=== PATIENT | female | born 1980 | race African-American/Black ===

== ENCOUNTER 2021-01-03 09:56 | Inpatient (IN) | payer OTHER ==
[2021-01-03] VITALS (34 sets, daily range): BP systolic 88–142; BP diastolic 56–97
[~2021-01-03] VITALS: Ht 167.6 cm; Wt 72.6 kg
[~2021-01-03 09:56] MED LIST: ATROPINE SULFATE 1MG/10ML SYR ONE; EPINEPHRINE 0.1MG/ML (1:10,000) 10ML SYR ONE; ETOMIDATE 2MG/ML 10ML VIAL IV ONE; SODIUM BICARBONATE 8.4% 1 MEQ/ML 50ML SYR IV ONE; SUCCINYLCHOLINE CHLORIDE 200MG/10ML IV ONE
[2021-01-03] MEDS ORDERED: MORPHINE SULFATE 4 MG/ML CPJ (NOT FOR IM USE) IV ONE (10:15)
[2021-01-03] MEDS ORDERED: SODIUM CHLORIDE 0.9% 1000ML BAG (SEPSIS BOLUS) IV ONE (10:15)
[2021-01-03 10:43] LABS: BASOPHILS % 0.7 % (0.0-2.0); EOSINOPHILS % 1.4 % (0.0-5.0); HEMATOCRIT. 22.1 % (36.0-48.0); LYMPHOCYTES % 41.6 % (20.0-50.0); MEAN CORPUSCULAR HEMOGLOBIN 19.2 pg (28.0-32.0); MEAN CORPUSCULAR VOLUME 77.3 fL (81.0-99.0); MEAN PLATELET VOLUME 7.6 fl (7.4-10.4); MONOCYTES % 9.5 % (2.0-8.0); NEUTROPHILS % 46.8 % (40.0-76.0); PLATELET 465 x1000/uL (130-400); RED BLOOD CELL COUNT 2.86 mill/uL (4.2-5.4); RED CELL DISTRIBUTION WIDTH 18.6 % (11.6-14.6)
[2021-01-03 10:45] LABS: CHLORIDE 106 mEq/L (98-107)
[2021-01-03] MEDS ORDERED: SUCCINYLCHOLINE CHLORIDE 200MG/10ML IV ONE (10:45)
[2021-01-03] MEDS ORDERED: PROPOFOL 10MG/ML 100ML 100 ML IV ONE (10:45)
[2021-01-03 10:49] LABS: ETHANOL BLOOD < 10 mg/dL; HEMOGLOBIN. 5.5 g/dL (12.0-16.0); PROTHROMBIN TIME 11.1 sec (9.6-11.0)
[2021-01-03 10:53] LABS: CREATINE KINASE 153 IU/L (26-192)
[2021-01-03 11:11] LABS: HCG SCREEN NEGATIVE
[2021-01-03] MEDS ORDERED: MIDAZOLAM HCL 100 MG in DEXT 5% WATER 80 ML IV ONE (11:30)
[2021-01-03] MEDS ORDERED: FENTANYL CITRATE/PF 500 MCG in SODIUM CHLORIDE 0.9% 40 ML IV PRN (11:30)
[2021-01-03] MEDS ORDERED: FENTANYL CITRATE/PF 2,500 MCG in SODIUM CHLORIDE 0.9% 200 ML IV PRN (11:39)
[2021-01-03] MEDS ORDERED: MIDAZOLAM 100MG/100ML PMX 100 ML IV NR (11:45)
[2021-01-03] MEDS ORDERED: MIDAZOLAM 100MG/100ML PMX 80 ML IV NR (11:45)
[2021-01-03 11:47] LABS: CLARITY URINE CLEAR (CLEAR); COLOR URINE YELLOW (YELLOW); KETONES URINE NEGATIVE (NEGATIVE); LEUKOCYTE ESTERASE URINE NEGATIVE (NEGATIVE); NITRITE URINE NEGATIVE (NEGATIVE); OCCULT BLOOD URINE NEGATIVE (NEGATIVE); PH URINE 8.5 (4.5-8.0); PROTEIN URINE 1+ (NEGATIVE); SPECIFIC GRAVITY URINE 1.014 (1.005-1.030); UROBILINOGEN URINE 0.2 E.U./dL (0.2-1.0)
[2021-01-03 12:14] LABS: BG BASE EXCESS -11.5 mmol/L (-2.0-2.0); BG CARBOXYHEMOGLOBIN 1.3 % (0.5-1.5); BG DEOXYHEMOGLOBIN 0.3 % (0.0-5.0); BG FRACTION INSPIRED OXYGEN 100; BG HCO3 ACT 17.5 mmol/L (22.0-26.0); BG METHEMOGLOBIN 0.3 % (0.0-1.5); BG OXYGEN SATURATION 99.7 % (92.0-98.5); BG OXYHEMOGLOBIN 98.1 % (94.0-97.0); BG PCO2 61.1 mmHg (35.0-45.0); BG PH 7.076 (7.350-7.450); BG PO2 495.2 mmHg (75.0-100.0); BG SAMPLE SITE RIGHT BRACHIAL; BG TOTAL HEMOGLOBIN 6.1 g/dL (12.0-18.0); BG TOTAL RESPIRATORY RATE 34 b/min; BG VENT MODE VENT - AC
[2021-01-03 12:29] LABS: *BARBITURATES SCREEN URINE NEGATIVE (NEGATIVE)
[2021-01-03 12:30] LABS: CANNABINOID URINE SCREEN NEGATIVE (NEGATIVE); PHENCYCLIDINE URINE SCREEN NEGATIVE (NEGATIVE)
[2021-01-03 12:32] LABS: *AMPHETAMINES SCREEN URINE NEGATIVE (NEGATIVE); *BENZODIAZEPINES SCREEN URINE NEGATIVE (NEGATIVE)
[2021-01-03 12:34] LABS: METHADONE URINE SCREEN NEGATIVE (NEGATIVE)
[2021-01-03 12:37] LABS: *COCAINE SCREEN URINE NEGATIVE (NEGATIVE); OPIATES URINE SCREEN NEGATIVE (NEGATIVE)
[2021-01-03] MEDS ORDERED: IOHEXOL-350 100 ML BOTTLE ONE (12:44)
[2021-01-03] MEDS ORDERED: SODIUM BICARBONATE 8.4% 1 MEQ/ML 50ML SYR IV NR (12:45)
[2021-01-03 14:08] LABS: CHLORIDE 109 mEq/L (98-107); HEMATOCRIT. 24.1 % (36.0-48.0); HEMOGLOBIN. 7.1 g/dL (12.0-16.0); MEAN CORPUSCULAR HEMOGLOBIN 22.5 pg (28.0-32.0); MEAN CORPUSCULAR VOLUME 76.1 fL (81.0-99.0); MEAN PLATELET VOLUME 6.6 fl (7.4-10.4); PLATELET 324 x1000/uL (130-400); RED BLOOD CELL COUNT 3.17 mill/uL (4.2-5.4); RED CELL DISTRIBUTION WIDTH 22.3 % (11.6-14.6)
[2021-01-03 14:12] LABS: INR 1.2; PROTHROMBIN TIME 12.4 sec (9.6-11.0)
[2021-01-03 14:43] LABS: BG BASE EXCESS -2.6 mmol/L (-2.0-2.0); BG CARBOXYHEMOGLOBIN 0.4 % (0.5-1.5); BG DEOXYHEMOGLOBIN 6.3 % (0.0-5.0); BG FRACTION INSPIRED OXYGEN 45; BG METHEMOGLOBIN 0.6 % (0.0-1.5); BG OXYGEN SATURATION 93.6 % (92.0-98.5); BG OXYHEMOGLOBIN 92.7 % (94.0-97.0); BG PCO2 43.9 mmHg (35.0-45.0); BG PH 7.338 (7.350-7.450); BG PO2 81.7 mmHg (75.0-100.0); BG SAMPLE SITE RIGHT BRACHIAL; BG TOTAL HEMOGLOBIN 7.2 g/dL (12.0-18.0); BG TOTAL RESPIRATORY RATE 25 b/min; BG VENT MODE VENT - AC
[2021-01-03 15:06] LABS: PLATELET ESTIMATE NORMAL
[2021-01-03] MEDS ORDERED: NOREPINEPHRINE 8MG/250ML PMX 250 ML IV NR (15:30)
[2021-01-03 16:33] LABS: TOTAL IRON BINDING CAPACITY 394 ug/dL (250-450)
[2021-01-03 16:57] LABS: FOLIC ACID (FOLATE) SERUM >20 ng/mL ng/mL (>5.38)
[2021-01-03 17:09] LABS: VITAMIN B12 SERUM 1336 pg/mL (211-911)
[2021-01-03 17:13] LABS: FERRITIN 7 ng/mL (10-291)
[2021-01-03] MEDS ORDERED: LEVOFLOXACIN 750MG PREMIX 150 ML IV SCH (17:30)
[2021-01-03] MEDS ORDERED: MIDAZOLAM 100MG/100ML PMX 100 ML IV PRN (17:45)
[2021-01-03] MEDS ORDERED: NOREPINEPHRINE 8MG/250ML PMX 250 ML IV PRN (17:45)
[2021-01-03 17:56] LABS: HEPATITIS B SURFACE ANTIGEN NEGATIVE
[2021-01-03] MEDS ORDERED: VANCOMYCIN 1500MG in DEXTROSE 5% WATER 250ML IV NR (18:00)
[2021-01-03] MEDS: PANTOPRAZOLE SODIUM 40 MG/VIAL IV SCH (18:04)
[2021-01-03] MEDS: DEXT 5%/0.45% NACL 1000ML 1,000 ML IV SCH (18:04)
[2021-01-03] MEDS: LACTULOSE 20G/30ML UDC PO SCH ×2 (18:04→22:03)
[2021-01-03] MEDS: MIDAZOLAM HCL 100 MG in SODIUM CHLORIDE 0.9% 100 ML IV PRN (18:28)
[2021-01-03] MEDS ORDERED: HEPARIN 5000 UNITS/ML VIAL IV PRN ×3 (18:30→20:14)
[2021-01-03] MEDS ORDERED: HEPARIN 25,000 UNITS PREMIX 250 ML IV PRN (18:30)
[2021-01-03] MEDS ORDERED: HEPARIN 5000 UNITS/ML VIAL IV SCH (18:30)
[2021-01-03] MEDS: FENTANYL CITRATE/PF 2,500 MCG in SODIUM CHLORIDE 0.9% 200 ML IV PRN (19:01)
[2021-01-03 20:16] LABS: BASOPHILS % 0.2 % (0.0-2.0); EOSINOPHILS % 0.2 % (0.0-5.0); HEMATOCRIT. 25.1 % (36.0-48.0); HEMOGLOBIN. 7.7 g/dL (12.0-16.0); LYMPHOCYTES % 15.4 % (20.0-50.0); MEAN CORPUSCULAR HEMOGLOBIN 22.5 pg (28.0-32.0); MEAN CORPUSCULAR VOLUME 73.5 fL (81.0-99.0); MEAN PLATELET VOLUME 6.8 fl (7.4-10.4); MONOCYTES % 6.9 % (2.0-8.0); NEUTROPHILS % 77.3 % (40.0-76.0); PLATELET 388 x1000/uL (130-400); RED BLOOD CELL COUNT 3.41 mill/uL (4.2-5.4); RED CELL DISTRIBUTION WIDTH 22.9 % (11.6-14.6)
[2021-01-03 20:26] LABS: INR 1.1; PARTIAL THROMBOPLASTIN TIME 26.7 sec (23.4-31.0); PROTHROMBIN TIME 11.8 sec (9.6-11.0)
[2021-01-03 20:40] LABS: PLATELET ESTIMATE NORMAL
[2021-01-03 21:50] LABS: BASOPHILS % 0.4 % (0.0-2.0); EOSINOPHILS % 0.3 % (0.0-5.0); HEMATOCRIT. 25.2 % (36.0-48.0); HEMOGLOBIN. 7.6 g/dL (12.0-16.0); LYMPHOCYTES % 18.1 % (20.0-50.0); MEAN CORPUSCULAR HEMOGLOBIN 22.5 pg (28.0-32.0); MEAN CORPUSCULAR VOLUME 74.3 fL (81.0-99.0); MEAN PLATELET VOLUME 6.7 fl (7.4-10.4); MONOCYTES % 8.9 % (2.0-8.0); NEUTROPHILS % 72.3 % (40.0-76.0); PLATELET 381 x1000/uL (130-400); RED BLOOD CELL COUNT 3.39 mill/uL (4.2-5.4)
[2021-01-03] MEDS: LEVOFLOXACIN 750MG PREMIX 150 ML IV SCH (22:04)
[2021-01-03] MEDS ORDERED: ACETAMINOPHEN 650MG SUPP PR PRN (23:00)
[2021-01-04] VITALS (92 sets, daily range): BP systolic 64–141; BP diastolic 25–87
[2021-01-04] MEDS: NOREPINEPHRINE 8 MG in DEXTROSE 5% WATER 250 ML IV PRN ×2 (01:41→09:41)
[2021-01-04] MEDS: MIDAZOLAM HCL 100 MG in SODIUM CHLORIDE 0.9% 100 ML IV PRN ×2 (05:39→15:50)
[2021-01-04] MEDS: LACTULOSE 20G/30ML UDC PO SCH ×3 (05:39→21:43)
[2021-01-04 05:51] LABS: CHLORIDE 110 mEq/L (98-107)
[2021-01-04 05:52] LABS: BASOPHILS % 0.5 % (0.0-2.0); EOSINOPHILS % 0.2 % (0.0-5.0); HEMATOCRIT. 37.6 % (36.0-48.0); HEMOGLOBIN. 11.4 g/dL (12.0-16.0); LYMPHOCYTES % 11.5 % (20.0-50.0); MEAN CORPUSCULAR HEMOGLOBIN 23.8 pg (28.0-32.0); MEAN CORPUSCULAR VOLUME 78.4 fL (81.0-99.0); MEAN PLATELET VOLUME 7.3 fl (7.4-10.4); MONOCYTES % 6.5 % (2.0-8.0); NEUTROPHILS % 81.3 % (40.0-76.0); PLATELET 380 x1000/uL (130-400); RED CELL DISTRIBUTION WIDTH 21.3 % (11.6-14.6)
[2021-01-04 05:57] LABS: PHOSPHORUS 4.7 mg/dL (2.5-4.9)
[2021-01-04 05:59] LABS: LDL CHOLESTEROL 86 mg/dL (5-100)
[2021-01-04 06:00] LABS: CREATINE KINASE MB FRACTION 16.1 ng/mL (0.5-3.6); HDL CHOLESTEROL 72 mg/dL (40-59); T4 FREE 1.22 ng/dL (0.76-1.46)
[2021-01-04] MEDS: FENTANYL CITRATE/PF 2,500 MCG in SODIUM CHLORIDE 0.9% 200 ML IV PRN ×2 (08:09→21:44)
[2021-01-04] MEDS: PANTOPRAZOLE SODIUM 40 MG/VIAL IV SCH (08:10)
[2021-01-04] MEDS: VANCOMYCIN 750 MG PREMIX 150 ML IV SCH ×2 (08:10→17:11)
[2021-01-04] MEDS: IPRATROPIUM/ALBUTEROL 0.5-3(2.5)MG/3ML NEB HHN SCH ×3 (08:44→21:07)
[2021-01-04] MEDS ORDERED: LIDOCAINE HCL 1% 10 MG/ML 10ML VIAL ONE (09:48)
[2021-01-04] MEDS ORDERED: FENTANYL CITRATE/PF 50MCG/ML 5ML VIAL ONE (09:48)
[2021-01-04] MEDS ORDERED: MIDAZOLAM HCL 5 MG/5 ML VIAL ONE (09:48)
[2021-01-04] MEDS ORDERED: IOHEXOL-300 100 ML BOTTLE ONE (09:49)
[2021-01-04] MEDS ORDERED: IODIXANOL 320MG/ML 100 ML BOTTLE IV ONE ×2 (09:49→11:49)
[2021-01-04 10:12] LABS: BG BASE EXCESS -3.7 mmol/L (-2.0-2.0); BG CARBOXYHEMOGLOBIN 0.3 % (0.5-1.5); BG DEOXYHEMOGLOBIN 9.8 % (0.0-5.0); BG FRACTION INSPIRED OXYGEN 45; BG HCO3 ACT 22.7 mmol/L (22.0-26.0); BG METHEMOGLOBIN 0.3 % (0.0-1.5); BG OXYGEN SATURATION 90.1 % (92.0-98.5); BG OXYHEMOGLOBIN 89.6 % (94.0-97.0); BG PCO2 46.4 mmHg (35.0-45.0); BG PH 7.307 (7.350-7.450); BG PO2 68.9 mmHg (75.0-100.0); BG SAMPLE SITE RIGHT BRACHIAL; BG TOTAL HEMOGLOBIN 11.7 g/dL (12.0-18.0); BG VENT MODE VENT - AC
[2021-01-04] MEDS ORDERED: HEPARIN 1000 UNITS/ML 10ML ONE (11:57)
[2021-01-04] MEDS: DEXT 5%/0.45% NACL 1000ML 1,000 ML IV SCH (13:10)
[2021-01-04] MEDS ORDERED: ATROPINE SULFATE 1MG/10ML SYR IV PRN (13:45)
[2021-01-04 15:50] LABS: BG BASE EXCESS 0.4 mmol/L (-2.0-2.0); BG CARBOXYHEMOGLOBIN 0.3 % (0.5-1.5); BG DEOXYHEMOGLOBIN 13.5 % (0.0-5.0); BG FRACTION INSPIRED OXYGEN 50; BG HCO3 ACT 25.6 mmol/L (22.0-26.0); BG METHEMOGLOBIN 0.3 % (0.0-1.5); BG OXYGEN SATURATION 86.4 % (92.0-98.5); BG OXYHEMOGLOBIN 85.9 % (94.0-97.0); BG PCO2 43.8 mmHg (35.0-45.0); BG PH 7.384 (7.350-7.450); BG PO2 56.3 mmHg (75.0-100.0); BG SAMPLE SITE RIGHT BRACHIAL; BG TOTAL HEMOGLOBIN 10.1 g/dL (12.0-18.0); BG VENT MODE VENT - AC
[2021-01-04] MEDS ORDERED: ACETAMINOPHEN 650MG/20.3ML UDC PO PRN (16:00)
[2021-01-04] MEDS: LEVOFLOXACIN 750MG PREMIX 150 ML IV SCH (17:10)
[2021-01-04] MEDS: ENOXAPARIN 80MG/0.8ML SYR SUBCUT SCH (17:11)
[2021-01-04] MEDS: ACETAMINOPHEN 650MG/20.3ML UDC NG PRN (21:46)
[2021-01-05] VITALS (89 sets, daily range): BP systolic 86–143; BP diastolic 46–72
[2021-01-05] MEDS: IPRATROPIUM/ALBUTEROL 0.5-3(2.5)MG/3ML NEB HHN SCH ×2 (00:59→20:11)
[2021-01-05] MEDS: MIDAZOLAM HCL 100 MG in SODIUM CHLORIDE 0.9% 100 ML IV PRN ×2 (03:49→14:14)
[2021-01-05 05:11] LABS: BASOPHILS % 0.3 % (0.0-2.0); EOSINOPHILS % 0.3 % (0.0-5.0); HEMATOCRIT. 26.5 % (36.0-48.0); HEMOGLOBIN. 8.2 g/dL (12.0-16.0); LYMPHOCYTES % 10.7 % (20.0-50.0); MEAN CORPUSCULAR HEMOGLOBIN 24.2 pg (28.0-32.0); MEAN CORPUSCULAR VOLUME 78.2 fL (81.0-99.0); MEAN PLATELET VOLUME 7.4 fl (7.4-10.4); MONOCYTES % 7.9 % (2.0-8.0); NEUTROPHILS % 80.8 % (40.0-76.0); PLATELET 248 x1000/uL (130-400); RED BLOOD CELL COUNT 3.39 mill/uL (4.2-5.4); RED CELL DISTRIBUTION WIDTH 21.7 % (11.6-14.6)
[2021-01-05 05:15] LABS: CHLORIDE 109 mEq/L (98-107)
[2021-01-05 05:19] LABS: PHOSPHORUS 2.2 mg/dL (2.5-4.9)
[2021-01-05] MEDS: LACTULOSE 20G/30ML UDC PO SCH (05:31)
[2021-01-05] MEDS: VANCOMYCIN 750 MG PREMIX 150 ML IV SCH ×3 (05:31→21:07)
[2021-01-05] MEDS: ENOXAPARIN 80MG/0.8ML SYR SUBCUT SCH ×2 (05:32→17:40)
[2021-01-05] MEDS: PANTOPRAZOLE SODIUM 40 MG/VIAL IV SCH (09:46)
[2021-01-05] MEDS: MIDODRINE HCL 5MG TABLET PO SCH ×3 (10:48→17:04)
[2021-01-05] MEDS: FENTANYL CITRATE/PF 2,500 MCG in SODIUM CHLORIDE 0.9% 200 ML IV PRN ×2 (10:49→23:45)
[2021-01-05 11:20] LABS: BG BASE EXCESS 2.3 mmol/L (-2.0-2.0); BG CARBOXYHEMOGLOBIN 0.3 % (0.5-1.5); BG DEOXYHEMOGLOBIN 11.3 % (0.0-5.0); BG FRACTION INSPIRED OXYGEN 50; BG HCO3 ACT 26.9 mmol/L (22.0-26.0); BG METHEMOGLOBIN 0.5 % (0.0-1.5); BG OXYGEN SATURATION 88.6 % (92.0-98.5); BG OXYHEMOGLOBIN 87.9 % (94.0-97.0); BG PCO2 42.3 mmHg (35.0-45.0); BG PH 7.422 (7.350-7.450); BG PO2 56.2 mmHg (75.0-100.0); BG SAMPLE SITE RIGHT BRACHIAL; BG TOTAL HEMOGLOBIN 8.3 g/dL (12.0-18.0); BG VENT MODE VENT - AC
[2021-01-05] MEDS: IRON SUCROSE COMPLEX 100 MG/5 ML ML IV SCH (12:55)
[2021-01-05] MEDS: FERROUS SULFATE 325MG TABLET PO SCH ×2 (12:55→17:04)
[2021-01-05] MEDS: LEVOFLOXACIN 750MG PREMIX 150 ML IV SCH (17:03)
[2021-01-05] MEDS: ACETAMINOPHEN 650MG/20.3ML UDC NG PRN (17:04)
[2021-01-06] VITALS (97 sets, daily range): BP systolic 87–126; BP diastolic 45–83
[2021-01-06] MEDS: IPRATROPIUM/ALBUTEROL 0.5-3(2.5)MG/3ML NEB HHN SCH ×3 (02:06→16:26)
[2021-01-06 03:27] LABS: CHLORIDE 107 mEq/L (98-107)
[2021-01-06 03:31] LABS: HEMATOCRIT. 24.2 % (36.0-48.0); HEMOGLOBIN. 7.8 g/dL (12.0-16.0); MEAN CORPUSCULAR HEMOGLOBIN 24.6 pg (28.0-32.0); MEAN CORPUSCULAR VOLUME 76.4 fL (81.0-99.0); MEAN PLATELET VOLUME 7.7 fl (7.4-10.4); PLATELET 211 x1000/uL (130-400); RED BLOOD CELL COUNT 3.17 mill/uL (4.2-5.4); RED CELL DISTRIBUTION WIDTH 22.5 % (11.6-14.6)
[2021-01-06] MEDS: ENOXAPARIN 80MG/0.8ML SYR SUBCUT SCH ×2 (05:38→17:37)
[2021-01-06] MEDS: VANCOMYCIN 750 MG PREMIX 150 ML IV SCH ×3 (05:38→22:37)
[2021-01-06] MEDS: FERROUS SULFATE 325MG TABLET PO SCH ×3 (05:39→17:36)
[2021-01-06] MEDS: LACTULOSE 20G/30ML UDC PO SCH (08:01)
[2021-01-06] MEDS: MIDODRINE HCL 5MG TABLET PO SCH ×3 (08:01→17:36)
[2021-01-06] MEDS: PANTOPRAZOLE SODIUM 40 MG/VIAL IV SCH (08:01)
[2021-01-06] MEDS: IRON SUCROSE COMPLEX 100 MG/5 ML ML IV SCH (08:01)
[2021-01-06] MEDS ORDERED: POTASSIUM-SODIUM PHOSPHATE POWDER PACKET PO SCH (08:30)
[2021-01-06 08:41] LABS: BG CARBOXYHEMOGLOBIN 0.5 % (0.5-1.5); BG DEOXYHEMOGLOBIN 6.9 % (0.0-5.0); BG FRACTION INSPIRED OXYGEN 50; BG HCO3 ACT 24.9 mmol/L (22.0-26.0); BG METHEMOGLOBIN 0.3 % (0.0-1.5); BG OXYHEMOGLOBIN 92.3 % (94.0-97.0); BG PCO2 36.2 mmHg (35.0-45.0); BG PH 7.456 (7.350-7.450); BG SAMPLE SITE LEFT RADIAL; BG TOTAL HEMOGLOBIN 7.5 g/dL (12.0-18.0); BG TOTAL RESPIRATORY RATE 24 b/min; BG VENT MODE VENT - AC
[2021-01-06] MEDS ORDERED: FUROSEMIDE 40MG/4ML VIAL IVP SCH (08:45)
[2021-01-06] MEDS ORDERED: DEXT 5%/0.45% NACL 1000ML 1,000 ML IV SCH (10:00)
[2021-01-06 11:05] LABS: PLATELET ESTIMATE NORMAL
[2021-01-06] MEDS: FENTANYL CITRATE/PF 2,500 MCG in SODIUM CHLORIDE 0.9% 200 ML IV PRN (15:02)
[2021-01-06] MEDS: LEVOFLOXACIN 750MG PREMIX 150 ML IV SCH (17:36)
[2021-01-06 19:42] LABS: HEMATOCRIT. 25.5 % (36.0-48.0); HEMOGLOBIN. 8.4 g/dL (12.0-16.0); MEAN CORPUSCULAR HEMOGLOBIN 25.6 pg (28.0-32.0); MEAN CORPUSCULAR VOLUME 77.3 fL (81.0-99.0); MEAN PLATELET VOLUME 7.7 fl (7.4-10.4); PLATELET 228 x1000/uL (130-400)
[2021-01-06 20:28] LABS: PLATELET ESTIMATE NORMAL
[2021-01-07] VITALS (86 sets, daily range): BP systolic 97–132; BP diastolic 23–82
[2021-01-07 00:53] LABS: BASOPHILS % 0.2 % (0.0-2.0); EOSINOPHILS % 0.7 % (0.0-5.0); HEMATOCRIT. 26.2 % (36.0-48.0); HEMOGLOBIN. 8.5 g/dL (12.0-16.0); LYMPHOCYTES % 11.1 % (20.0-50.0); MEAN CORPUSCULAR HEMOGLOBIN 25.3 pg (28.0-32.0); MEAN CORPUSCULAR VOLUME 78.1 fL (81.0-99.0); MEAN PLATELET VOLUME 7.2 fl (7.4-10.4); MONOCYTES % 9.9 % (2.0-8.0); NEUTROPHILS % 78.1 % (40.0-76.0); PLATELET 226 x1000/uL (130-400); RED BLOOD CELL COUNT 3.35 mill/uL (4.2-5.4); RED CELL DISTRIBUTION WIDTH 22.7 % (11.6-14.6)
[2021-01-07] MEDS: FENTANYL CITRATE/PF 2,500 MCG in SODIUM CHLORIDE 0.9% 200 ML IV PRN (03:44)
[2021-01-07 04:12] LABS: HIV SCREEN 4G Non Reactive (Non Reactive)
[2021-01-07] MEDS: VANCOMYCIN 750 MG PREMIX 150 ML IV SCH ×2 (06:16→14:17)
[2021-01-07] MEDS: FERROUS SULFATE 325MG TABLET PO SCH ×3 (06:16→17:08)
[2021-01-07] MEDS: ENOXAPARIN 80MG/0.8ML SYR SUBCUT SCH ×2 (06:17→17:08)
[2021-01-07 06:24] LABS: CHLORIDE 108 mEq/L (98-107)
[2021-01-07 06:27] LABS: BASOPHILS % 0.6 % (0.0-2.0); EOSINOPHILS % 0.5 % (0.0-5.0); HEMATOCRIT. 22.7 % (36.0-48.0); HEMOGLOBIN. 7.3 g/dL (12.0-16.0); LYMPHOCYTES % 9.2 % (20.0-50.0); MEAN CORPUSCULAR HEMOGLOBIN 25.6 pg (28.0-32.0); MEAN CORPUSCULAR VOLUME 79.7 fL (81.0-99.0); MEAN PLATELET VOLUME 8.1 fl (7.4-10.4); MONOCYTES % 10.2 % (2.0-8.0); NEUTROPHILS % 79.5 % (40.0-76.0); PLATELET 237 x1000/uL (130-400); RED BLOOD CELL COUNT 2.85 mill/uL (4.2-5.4); RED CELL DISTRIBUTION WIDTH 22.4 % (11.6-14.6)
[2021-01-07 08:37] LABS: BG BASE EXCESS 4.9 mmol/L (-2.0-2.0); BG CARBOXYHEMOGLOBIN 0.4 % (0.5-1.5); BG DEOXYHEMOGLOBIN 5.2 % (0.0-5.0); BG METHEMOGLOBIN 0.3 % (0.0-1.5); BG OXYGEN SATURATION 94.8 % (92.0-98.5); BG OXYHEMOGLOBIN 94.1 % (94.0-97.0); BG PCO2 41.1 mmHg (35.0-45.0); BG PH 7.467 (7.350-7.450); BG PO2 71.1 mmHg (75.0-100.0); BG SAMPLE SITE RIGHT RADIAL; BG TOTAL HEMOGLOBIN 9.1 g/dL (12.0-18.0)
[2021-01-07 08:41] LABS: BG VENT MODE VENT - A/C
[2021-01-07 08:42] LABS: BG TIDAL VOLUME(mL) 450 mL
[2021-01-07] MEDS: IPRATROPIUM/ALBUTEROL 0.5-3(2.5)MG/3ML NEB HHN SCH ×3 (08:46→21:33)
[2021-01-07] MEDS: IRON SUCROSE COMPLEX 100 MG/5 ML ML IV SCH (08:52)
[2021-01-07] MEDS: MIDODRINE HCL 5MG TABLET PO SCH ×3 (08:52→17:09)
[2021-01-07] MEDS: LACTULOSE 20G/30ML UDC PO SCH (08:52)
[2021-01-07] MEDS: PANTOPRAZOLE SODIUM 40 MG/VIAL IV SCH (08:52)
[2021-01-07] MEDS ORDERED: POTASSIUM CHLORIDE 20MEQ TABLET SR PO NR (09:45)
[2021-01-07 11:14] LABS: BG BASE EXCESS 2.8 mmol/L (-2.0-2.0); BG CARBOXYHEMOGLOBIN 0.3 % (0.5-1.5); BG DEOXYHEMOGLOBIN 6.7 % (0.0-5.0); BG FRACTION INSPIRED OXYGEN 40; BG METHEMOGLOBIN 0.2 % (0.0-1.5); BG OXYGEN SATURATION 93.3 % (92.0-98.5); BG OXYHEMOGLOBIN 92.8 % (94.0-97.0); BG PCO2 39.9 mmHg (35.0-45.0); BG PH 7.448 (7.350-7.450); BG PO2 66.3 mmHg (75.0-100.0); BG SAMPLE SITE RIGHT RADIAL; BG TOTAL HEMOGLOBIN 9.4 g/dL (12.0-18.0); BG TOTAL RESPIRATORY RATE 21 b/min; BG VENT MODE VENT - CPAP
[2021-01-07] MEDS: FUROSEMIDE 40MG/4ML VIAL IVP SCH (11:54)
[2021-01-07] MEDS: POLYETHYLENE GLYCOL 3350 (17GM) 1 DOSE PACK PO SCH (14:17)
[2021-01-07 15:23] LABS: BASOPHILS % 0.3 % (0.0-2.0); EOSINOPHILS % 0.7 % (0.0-5.0); HEMATOCRIT. 33.4 % (36.0-48.0); HEMOGLOBIN. 10.6 g/dL (12.0-16.0); LYMPHOCYTES % 8.5 % (20.0-50.0); MEAN CORPUSCULAR HEMOGLOBIN 24.8 pg (28.0-32.0); MEAN PLATELET VOLUME 7.8 fl (7.4-10.4); MONOCYTES % 12.1 % (2.0-8.0); NEUTROPHILS % 78.4 % (40.0-76.0); PLATELET 294 x1000/uL (130-400); RED BLOOD CELL COUNT 4.28 mill/uL (4.2-5.4); RED CELL DISTRIBUTION WIDTH 22.3 % (11.6-14.6)
[2021-01-07] MEDS ORDERED: FUROSEMIDE 20MG/2ML VIAL IVP SCH (16:00)
[2021-01-07 16:25] LABS: PLATELET ESTIMATE NORMAL
[2021-01-07] MEDS: LEVOFLOXACIN 750MG PREMIX 150 ML IV SCH (17:08)
[2021-01-07] MEDS: DOCUSATE SODIUM 100MG CAPSULE PO SCH (17:08)
[2021-01-08] VITALS (63 sets, daily range): BP systolic 101–149; BP diastolic 50–89
[2021-01-08] MEDS: IPRATROPIUM/ALBUTEROL 0.5-3(2.5)MG/3ML NEB HHN SCH ×3 (01:39→20:11)
[2021-01-08 06:04] LABS: CHLORIDE 105 mEq/L (98-107)
[2021-01-08] MEDS: ENOXAPARIN 80MG/0.8ML SYR SUBCUT SCH ×2 (07:04→17:35)
[2021-01-08] MEDS: FUROSEMIDE 40MG/4ML VIAL IVP SCH (08:02)
[2021-01-08] MEDS: MIDODRINE HCL 5MG TABLET PO SCH ×3 (08:02→17:35)
[2021-01-08] MEDS: POLYETHYLENE GLYCOL 3350 (17GM) 1 DOSE PACK PO SCH (08:02)
[2021-01-08] MEDS: FERROUS SULFATE 325MG TABLET PO SCH ×3 (08:02→17:33)
[2021-01-08] MEDS: PANTOPRAZOLE SODIUM 40 MG/VIAL IV SCH (08:02)
[2021-01-08] MEDS: LACTULOSE 20G/30ML UDC PO SCH (08:02)
[2021-01-08] MEDS: DOCUSATE SODIUM 100MG CAPSULE PO SCH ×2 (08:03→17:34)
[2021-01-08] MEDS ORDERED: POTASSIUM CHLORIDE INJ 40 MEQ in DEXT 5% WATER 250 ML IV ONE (10:15)
[2021-01-08 10:41] LABS: HEMATOCRIT. 32.8 % (36.0-48.0); HEMOGLOBIN. 10.4 g/dL (12.0-16.0); MEAN CORPUSCULAR VOLUME 78.6 fL (81.0-99.0); MEAN PLATELET VOLUME 7.7 fl (7.4-10.4); PLATELET 273 x1000/uL (130-400); RED BLOOD CELL COUNT 4.17 mill/uL (4.2-5.4); RED CELL DISTRIBUTION WIDTH 22.7 % (11.6-14.6)
[2021-01-08] MEDS: KCL 20MEQ/100ML PREMIX 100 ML IV SCH ×2 (11:54→14:08)
[2021-01-08 14:16] LABS: ATYPICAL LYMPHOCYTES 1
[2021-01-08 14:17] LABS: PLATELET ESTIMATE NORMAL
[2021-01-08] MEDS: LEVOFLOXACIN 750MG PREMIX 150 ML IV SCH (17:33)
[2021-01-08] MEDS ORDERED: POLYETHYLENE GLYCOL 3350 (17GM) 1 DOSE PACK PO NR (18:00)
[2021-01-09] VITALS (11 sets, daily range): BP systolic 109–143; BP diastolic 56–84
[2021-01-09] MEDS: IPRATROPIUM/ALBUTEROL 0.5-3(2.5)MG/3ML NEB HHN SCH ×4 (01:00→20:07)
[2021-01-09] MEDS: ENOXAPARIN 80MG/0.8ML SYR SUBCUT SCH ×2 (06:33→17:43)
[2021-01-09 06:55] LABS: HEMATOCRIT. 33.4 % (36.0-48.0); MEAN CORPUSCULAR HEMOGLOBIN 25.8 pg (28.0-32.0); MEAN PLATELET VOLUME 7.2 fl (7.4-10.4); PLATELET 317 x1000/uL (130-400); RED BLOOD CELL COUNT 4.29 mill/uL (4.2-5.4); RED CELL DISTRIBUTION WIDTH 22.8 % (11.6-14.6)
[2021-01-09 07:05] LABS: CHLORIDE 107 mEq/L (98-107)
[2021-01-09] MEDS: POLYETHYLENE GLYCOL 3350 (17GM) 1 DOSE PACK PO SCH (09:00)
[2021-01-09] MEDS: PANTOPRAZOLE SODIUM 40 MG/VIAL IV SCH (09:25)
[2021-01-09] MEDS: MIDODRINE HCL 5MG TABLET PO SCH ×3 (09:26→17:45)
[2021-01-09] MEDS: FUROSEMIDE 40MG/4ML VIAL IVP SCH (09:26)
[2021-01-09] MEDS: FERROUS SULFATE 325MG TABLET PO SCH (09:27)
[2021-01-09] MEDS: DOCUSATE SODIUM 100MG CAPSULE PO SCH ×2 (09:27→17:47)
[2021-01-09] MEDS: LACTULOSE 20G/30ML UDC PO SCH (09:27)
[2021-01-09] MEDS: ASCORBIC ACID 250 MG TABLET PO SCH (09:29)
[2021-01-09] MEDS: SPIRONOLACTONE 25MG TABLET PO SCH (10:29)
[2021-01-09] MEDS ORDERED: POTASSIUM CHLORIDE INJ 40 MEQ in DEXT 5% WATER 250 ML IV ONE (11:15)
[2021-01-09] MEDS: KCL 20MEQ/100ML PREMIX 100 ML IV SCH ×2 (12:55→17:47)
[2021-01-09 17:49] LABS: PLATELET ESTIMATE NORMAL
[2021-01-09] MEDS: GUAIFENESIN 600MG ER TABLET PO SCH (20:44)
[2021-01-10] VITALS (12 sets, daily range): BP systolic 100–135; BP diastolic 51–107
[2021-01-10] MEDS: IPRATROPIUM/ALBUTEROL 0.5-3(2.5)MG/3ML NEB HHN SCH ×4 (02:08→19:48)
[2021-01-10] MEDS: ENOXAPARIN 80MG/0.8ML SYR SUBCUT SCH ×2 (05:43→17:24)
[2021-01-10 06:48] LABS: CHLORIDE 106 mEq/L (98-107)
[2021-01-10 06:49] LABS: HEMATOCRIT. 34.1 % (36.0-48.0); HEMOGLOBIN. 11.2 g/dL (12.0-16.0); MEAN CORPUSCULAR HEMOGLOBIN 25.8 pg (28.0-32.0); MEAN CORPUSCULAR VOLUME 78.5 fL (81.0-99.0); MEAN PLATELET VOLUME 7.1 fl (7.4-10.4); PLATELET 339 x1000/uL (130-400); RED BLOOD CELL COUNT 4.34 mill/uL (4.2-5.4); RED CELL DISTRIBUTION WIDTH 23.6 % (11.6-14.6)
[2021-01-10] MEDS: ASCORBIC ACID 250 MG TABLET PO SCH (08:26)
[2021-01-10] MEDS: GUAIFENESIN 600MG ER TABLET PO SCH ×2 (08:26→20:06)
[2021-01-10] MEDS: FUROSEMIDE 40MG/4ML VIAL IVP SCH (08:26)
[2021-01-10] MEDS: PANTOPRAZOLE SODIUM 40 MG/VIAL IV SCH (08:26)
[2021-01-10] MEDS: DOCUSATE SODIUM 100MG CAPSULE PO SCH ×2 (08:27→16:25)
[2021-01-10] MEDS: MIDODRINE HCL 5MG TABLET PO SCH ×3 (08:27→17:24)
[2021-01-10] MEDS: SPIRONOLACTONE 25MG TABLET PO SCH (08:27)
[2021-01-10] MEDS: LACTULOSE 20G/30ML UDC PO SCH (08:27)
[2021-01-10] MEDS: POLYETHYLENE GLYCOL 3350 (17GM) 1 DOSE PACK PO SCH (08:27)
[2021-01-10] MEDS ORDERED: POTASSIUM CHLORIDE 20MEQ TABLET SR PO NR (08:30)
[2021-01-10] MEDS ORDERED: ONDANSETRON HCL 4MG/2ML INJ IV PRN (09:00)
[2021-01-10] MEDS ORDERED: POTASSIUM CHLORIDE INJ 40 MEQ in DEXT 5% WATER 250 ML IV ONE (09:00)
[2021-01-10] MEDS: KCL 20MEQ/100ML PREMIX 100 ML IV SCH ×2 (10:20→12:30)
[2021-01-10 11:47] LABS: BG CARBOXYHEMOGLOBIN 0.4 % (0.5-1.5); BG FRACTION INSPIRED OXYGEN 21; BG HCO3 ACT 27.7 mmol/L (22.0-26.0); BG METHEMOGLOBIN 0.2 % (0.0-1.5); BG OXYHEMOGLOBIN 91.4 % (94.0-97.0); BG PCO2 38.2 mmHg (35.0-45.0); BG PH 7.478 (7.350-7.450); BG PO2 64.7 mmHg (75.0-100.0); BG TOTAL HEMOGLOBIN 11.9 g/dL (12.0-18.0); BG VENT MODE ROOM AIR
[2021-01-10 15:00] LABS: ATYPICAL LYMPHOCYTES 3; PLATELET ESTIMATE NORMAL
[2021-01-11] VITALS (10 sets, daily range): BP systolic 111–143; BP diastolic 65–82
[2021-01-11] MEDS: IPRATROPIUM/ALBUTEROL 0.5-3(2.5)MG/3ML NEB HHN SCH ×3 (01:55→15:19)
[2021-01-11] MEDS: ENOXAPARIN 80MG/0.8ML SYR SUBCUT SCH (05:47)
[2021-01-11 06:16] LABS: HEMATOCRIT. 36.5 % (36.0-48.0); HEMOGLOBIN. 11.9 g/dL (12.0-16.0); MEAN CORPUSCULAR HEMOGLOBIN 25.8 pg (28.0-32.0); MEAN CORPUSCULAR VOLUME 79.1 fL (81.0-99.0); MEAN PLATELET VOLUME 6.8 fl (7.4-10.4); PLATELET 236 x1000/uL (130-400); RED BLOOD CELL COUNT 4.62 mill/uL (4.2-5.4); RED CELL DISTRIBUTION WIDTH 23.6 % (11.6-14.6)
[2021-01-11 06:26] LABS: CHLORIDE 105 mEq/L (98-107)
[2021-01-11] MEDS: LACTULOSE 20G/30ML UDC PO SCH (08:07)
[2021-01-11] MEDS: PANTOPRAZOLE SODIUM 40 MG/VIAL IV SCH (08:07)
[2021-01-11] MEDS: GUAIFENESIN 600MG ER TABLET PO SCH (08:07)
[2021-01-11] MEDS: MIDODRINE HCL 5MG TABLET PO SCH ×3 (08:09→17:00)
[2021-01-11] MEDS: ASCORBIC ACID 250 MG TABLET PO SCH (08:09)
[2021-01-11] MEDS: SPIRONOLACTONE 25MG TABLET PO SCH (08:10)
[2021-01-11] MEDS: POLYETHYLENE GLYCOL 3350 (17GM) 1 DOSE PACK PO SCH (08:11)
[2021-01-11] MEDS: DOCUSATE SODIUM 100MG CAPSULE PO SCH ×2 (08:11→17:00)
[2021-01-11] MEDS ORDERED: FUROSEMIDE 20MG TABLET PO SCH (09:00)
[2021-01-11] MEDS ORDERED: POTASSIUM CHLORIDE 20MEQ TABLET SR PO SCH (12:45)
[2021-01-11 14:34] LABS: PLATELET ESTIMATE NORMAL
[2021-01-11] MEDS ORDERED: ENOXAPARIN 80MG/0.8ML SYR SUBCUT SCH (18:00)
== END 2021-01-11 18:30 | disposition home health service (06) | DRG 853 ==
LOC: ER 09:56 → EDBEDREQ 14:55 → EDBEDREQTM 14:55 → ENRESERV 14:58 → MICUSO 17:26 → EDBD 17:26 → MICUNO 23:55 → 5EST 01-08 15:29
PROVIDERS: ADMIT Internal Medicine; ATTEND Internal Medicine
PROC: 02HV33Z Insertion of Infusion Device into Superior Vena Cava, Percutaneous Approach (ICD-10-PCS; 2021-01-03)
PROC: B548ZZA Ultrasonography of Superior Vena Cava, Guidance (ICD-10-PCS; 2021-01-03)
PROC: 5A1955Z Respiratory Ventilation, Greater than 96 Consecutive Hours (ICD-10-PCS; 2021-01-03)
PROC: 30233K1 Transfusion of Nonautologous Frozen Plasma into Peripheral Vein, Percutaneous Approach (ICD-10-PCS; 2021-01-03)
PROC: 0BH17EZ Insertion of Endotracheal Airway into Trachea, Via Natural or Artificial Opening (ICD-10-PCS; 2021-01-03)
PROC: 02CQ3ZZ Extirpation of Matter from Right Pulmonary Artery, Percutaneous Approach (ICD-10-PCS; principal; 2021-01-04)
PROC: 02CR3ZZ Extirpation of Matter from Left Pulmonary Artery, Percutaneous Approach (ICD-10-PCS; 2021-01-04)
PROC: B54CZZA Ultrasonography of Left Lower Extremity Veins, Guidance (ICD-10-PCS; 2021-01-04)
PROC: B519YZZ Fluoroscopy of Inferior Vena Cava using Other Contrast (ICD-10-PCS; 2021-01-04)
PROC: B51BYZZ Fluoroscopy of Right Lower Extremity Veins using Other Contrast (ICD-10-PCS; 2021-01-04)
PROC: B31TYZZ Fluoroscopy of Left Pulmonary Artery using Other Contrast (ICD-10-PCS; 2021-01-04)
PROC: B31SYZZ Fluoroscopy of Right Pulmonary Artery using Other Contrast (ICD-10-PCS; 2021-01-04)
PROC: 4A023N6 Measurement of Cardiac Sampling and Pressure, Right Heart, Percutaneous Approach (ICD-10-PCS; 2021-01-04)
PROC: 30233N1 Transfusion of Nonautologous Red Blood Cells into Peripheral Vein, Percutaneous Approach (ICD-10-PCS; 2021-01-04)
PROC: 02HV33Z Insertion of Infusion Device into Superior Vena Cava, Percutaneous Approach (ICD-10-PCS; 2021-01-06)
PROC: B548ZZA Ultrasonography of Superior Vena Cava, Guidance (ICD-10-PCS; 2021-01-06)
DX: A41.9 Sepsis, unspecified organism (principal); I21.4 Non-ST elevation (NSTEMI) myocardial infarction; I26.92 Saddle embolus of pulmonary artery without acute cor pulmonale; I46.9 Cardiac arrest, cause unspecified; J18.9 Pneumonia, unspecified organism; J96.01 Acute respiratory failure with hypoxia; K72.00 Acute and subacute hepatic failure without coma; R65.21 Severe sepsis with septic shock; J96.02 Acute respiratory failure with hypercapnia; E44.0 Moderate protein-calorie malnutrition; E87.4 Mixed disorder of acid-base balance; N17.9 Acute kidney failure, unspecified; D68.59 Other primary thrombophilia; I82.411 Acute embolism and thrombosis of right femoral vein; R18.8 Other ascites; Z20.822 Contact with and (suspected) exposure to COVID-19; N94.6 Dysmenorrhea, unspecified; I11.0 Hypertensive heart disease with heart failure; I50.811 Acute right heart failure; D25.9 Leiomyoma of uterus, unspecified; D50.9 Iron deficiency anemia, unspecified; I27.29 Other secondary pulmonary hypertension; I27.81 Cor pulmonale (chronic); I45.10 Unspecified right bundle-branch block; R00.1 Bradycardia, unspecified; G90.8 Other disorders of autonomic nervous system; R74.01 Elevation of levels of liver transaminase levels; Z88.0 Allergy status to penicillin; Z79.01 Long term (current) use of anticoagulants; Z68.25 Body mass index [BMI] 25.0-25.9, adult
CPT/HCPCS: 36415; 36600; 37184; 37186; 71045; 71275; 74174; 75743; 75825; 76700; 76937; 80048; 80053; 80061; 80076; 80202; 80305; 80307; 80320; 80329; 81003; 82140; 82248; 82270; 82375; 82550; 82553; 82607; 82728; 82746; 82805; 82962; 83540; 83550; 83605; 83615; 83735; 83880; 84100; 84145; 84439; 84443; 84484; 84703; 85025; 85044; 85347; 86140; 86705; 86709; 86803; 86850; 86900; 86920; 86927; 87070; 87340; 87389; 92610; 93005; 93306; 93970; 94002; 94003; 94618; 94640; 97116; 97162; 97166; 99291; A6261; C1725; C1760; C1766; C1769; C1887; C1893; C9113; J0330; J0461; J1644; J1650; J1940; J1956; J2250; J2405; J2704; J3010; J3370; J3480; J3490; J7030; J7040; J7050; J7060; P9016; P9017; Q9967; U0003; U0005; A4315; C1757; G0480

== ENCOUNTER 2023-10-20 18:33 | Inpatient (IN) | payer MEDICAID, OTHER ==
[~2023-10-20] VITALS: Ht 170.2 cm; Wt 72.1 kg
[2023-10-20 20:22] LABS: CALCIUM 8.9 mg/dL (8.7-10.4); CARBON DIOXIDE 24 mEq/L (21-32); CHLORIDE 110 mEq/L (98-107); POTASSIUM 4.3 mEq/L (3.5-5.1); SODIUM 138 mEq/L (136-145)
[2023-10-20 20:23] LABS: BASOPHILS % 1.6 % (0.0-2.0); DIFFERENTIAL COMMENT 0; EOSINOPHILS % 3.6 % (0.0-5.0); LYMPHOCYTES % 40.5 % (20.0-50.0); MEAN CORPUSCULAR HEMOGLOBIN 22.6 pg (28.0-32.0); MEAN CORPUSCULAR HGB CONC 29.8 g/dL (31.0-37.0); MEAN CORPUSCULAR VOLUME 75.8 fL (81.0-99.0); MEAN PLATELET VOLUME 7.9 fl (7.4-10.4); MONOCYTES % 14.2 % (2.0-8.0); NEUTROPHILS % 40.1 % (40.0-76.0); PLATELET 495 x1000/uL (130-400); RED BLOOD CELL COUNT 3.02 mill/uL (4.2-5.4); RED CELL DISTRIBUTION WIDTH 18.2 % (11.6-14.6); WHITE BLOOD COUNT 4.3 x1000/uL (4.5-11.0)
[2023-10-20 20:28] LABS: CREATININE 0.8 mg/dL (0.6-1.0); GLUCOSE 71 mg/dL (70-105); UREA NITROGEN BLOOD 8 mg/dL (9-23)
[2023-10-20 20:29] LABS: HEMATOCRIT. 22.9 % (36.0-48.0); HEMOGLOBIN. 6.8 g/dL (12.0-16.0)
[2023-10-20 22:09] LABS: HCG SCREEN NEGATIVE
[2023-10-20 22:12] LABS: PARTIAL THROMBOPLASTIN TIME 25.9 sec (23.4-31.0); PROTHROMBIN TIME 10.9 sec (9.6-11.0)
[2023-10-20 22:26] LABS: TROPONIN I HIGH SENSITIVITY < 4 ng/L (3.0-34)
[2023-10-20] MEDS: SODIUM CHLORIDE 0.9% 1,000 ML IV ONE (23:00)
[2023-10-21] MEDS ORDERED: CLONIDINE 0.1MG TABLET PO PRN (04:45)
[2023-10-21] MEDS ORDERED: DOCUSATE SODIUM 100MG CAPSULE PO PRN (04:45)
[2023-10-21] MEDS ORDERED: IPRATROPIUM/ALBUTEROL 0.5-3(2.5)MG/3ML NEB HHN PRN (04:45)
[2023-10-21] MEDS ORDERED: ONDANSETRON HCL 4MG/2ML INJ IV PRN (04:45)
[2023-10-21] MEDS ORDERED: MAGNESIUM/ALUMINUM HYDROXIDE/SIMETHICONE 30ML UDC PO PRN (04:45)
[2023-10-21] MEDS ORDERED: DIPHENHYDRAMINE 50MG/ML VIAL IV PRN (04:45)
[2023-10-21] MEDS: IOHEXOL-300 100 ML BOTTLE ONE (06:57)
[2023-10-21] MEDS: DEXT 5%/0.45% NACL 1000ML 1,000 ML IV NR (07:16)
[2023-10-21 07:47] LABS: HEMOGLOBIN 7.6 g/dL (12.0-16.0)
[2023-10-21 08:01] LABS: IRON 21 ug/dL (50-170)
[2023-10-21 08:03] LABS: LACTATE DEHYDROGENASE 190 IU/L (120-246)
[2023-10-21 08:04] LABS: TOTAL IRON BINDING CAPACITY 307 ug/dl (250-425)
[2023-10-21] MEDS: PANTOPRAZOLE 40MG DR TABLET PO SCH (08:07)
[2023-10-21 08:13] LABS: FOLIC ACID (FOLATE) SERUM 13.15 ng/mL (>5.38)
[2023-10-21 08:57] LABS: FERRITIN 3 ng/mL (10-291); VITAMIN B12 SERUM > 2000 pg/mL (211-911)
[2023-10-21] MEDS: FERROUS SULFATE 325MG TABLET PO SCH ×2 (09:19→20:29)
[2023-10-21 12:00] VITALS: BP 118/45; PULSE 44; RESP 16; TEMP 36.61404; O2SAT 98
[2023-10-21 13:40] VITALS: BP 118/45; PULSE 44; RESP 18; TEMP 36.6404
[2023-10-21 16:00] VITALS: BP 116/68; PULSE 46; RESP 16; TEMP 36.114; O2SAT 98
[2023-10-21 17:15] LABS: HEMATOCRIT 33.3 % (36.0-48.0); HEMOGLOBIN 9.8 g/dL (12.0-16.0)
[2023-10-21 17:21] LABS: CHLORIDE 107 mEq/L (98-107); POTASSIUM 4.2 mEq/L (3.5-5.1); SODIUM 138 mEq/L (136-145)
[2023-10-21 17:22] LABS: CALCIUM 9.6 mg/dL (8.7-10.4); CARBON DIOXIDE 22 mEq/L (21-32)
[2023-10-21 17:27] LABS: CREATININE 0.8 mg/dL (0.6-1.0); GLUCOSE 79 mg/dL (70-105)
[2023-10-21 17:29] LABS: UREA NITROGEN BLOOD < 5 mg/dL (9-23)
[2023-10-21 18:59] LABS: CLARITY URINE CLEAR (CLEAR); COLOR URINE YELLOW (YELLOW); GLUCOSE URINE NEGATIVE (NEGATIVE); KETONES URINE NEGATIVE (NEGATIVE); LEUKOCYTE ESTERASE URINE NEGATIVE (NEGATIVE); NITRITE URINE NEGATIVE (NEGATIVE); OCCULT BLOOD URINE 2+ (NEGATIVE); PROTEIN URINE NEGATIVE (NEGATIVE); SPECIFIC GRAVITY URINE 1.005 (1.005-1.030); UROBILINOGEN URINE 0.2 E.U./dL (0.2-1.0)
[2023-10-21 19:13] LABS: *AMPHETAMINES SCREEN URINE NEGATIVE (NEGATIVE); *BARBITURATES SCREEN URINE NEGATIVE (NEGATIVE); *BENZODIAZEPINES SCREEN URINE NEGATIVE (NEGATIVE); *COCAINE SCREEN URINE NEGATIVE (NEGATIVE); CANNABINOID URINE SCREEN NEGATIVE (NEGATIVE); METHADONE URINE SCREEN NEGATIVE (NEGATIVE); OPIATES URINE SCREEN NEGATIVE (NEGATIVE); PHENCYCLIDINE URINE SCREEN NEGATIVE (NEGATIVE)
[2023-10-21 19:14] LABS: ECSTASY MDMA SCREEN URINE NEGATIVE (NEGATIVE)
[2023-10-21 20:00] VITALS: BP 98/55; PULSE 65; RESP 20; TEMP 36.28068; O2SAT 100
[2023-10-21 20:38] LABS: WBC URINE 0-2 /hpf (0-2)
[2023-10-21 20:39] LABS: BACTERIA URINE NONE SEEN; RBC URINE 0-2 /hpf (0-2); SQUAMOUS EPITHELIAL CELL URINE NONE SEEN /lpf (RARE/1+)
[2023-10-21 22:37] LABS: TROPONIN I HIGH SENSITIVITY < 4 ng/L (3.0-34)
[2023-10-22] VITALS (7 sets, daily range): BP systolic 89–149; BP diastolic 50–74; PULSE 52–90; RESP 18–20; TEMP 35.78064–37.11408; O2SAT 96–100
[2023-10-22 09:16] LABS: BASOPHILS % 1.2 % (0.0-2.0); DIFFERENTIAL COMMENT 0; EOSINOPHILS % 1.6 % (0.0-5.0); HEMATOCRIT. 27.3 % (36.0-48.0); HEMOGLOBIN. 8.3 g/dL (12.0-16.0); LYMPHOCYTES % 29.3 % (20.0-50.0); MEAN CORPUSCULAR HEMOGLOBIN 22.9 pg (28.0-32.0); MEAN CORPUSCULAR HGB CONC 30.2 g/dL (31.0-37.0); MEAN CORPUSCULAR VOLUME 75.9 fL (81.0-99.0); MEAN PLATELET VOLUME 7.8 fl (7.4-10.4); MONOCYTES % 10.6 % (2.0-8.0); NEUTROPHILS % 57.3 % (40.0-76.0); PLATELET 456 x1000/uL (130-400); WHITE BLOOD COUNT 4.6 x1000/uL (4.5-11.0)
[2023-10-22 09:22] LABS: CHLORIDE 107 mEq/L (98-107); POTASSIUM 3.7 mEq/L (3.5-5.1); SODIUM 139 mEq/L (136-145)
[2023-10-22 09:23] LABS: CALCIUM 9.2 mg/dL (8.7-10.4); CARBON DIOXIDE 28 mEq/L (21-32)
[2023-10-22 09:28] LABS: CREATININE 0.8 mg/dL (0.6-1.0); GLUCOSE 91 mg/dL (70-105)
[2023-10-22 09:30] LABS: ALANINE AMINOTRANSFERASE 10 IU/L (10-49); ALBUMIN 3.9 g/dL (3.2-4.8); ASPARTATE AMINOTRANSFERASE 17 IU/L (<34); BILIRUBIN DIRECT 0.2 mg/dL (<=3.0); BILIRUBIN TOTAL 0.7 mg/dL (0.1-1.0)
[2023-10-22 09:31] LABS: T4 FREE 0.92 ng/dL (0.89-1.76); THYROID STIMULATING HORMONE 2.16 uIU/mL (0.55-4.78)
[2023-10-22 10:42] LABS: UREA NITROGEN BLOOD < 5 mg/dL (9-23)
[2023-10-22] MEDS ORDERED: FERR-63 PO (13:59)
[2023-10-22] MEDS ORDERED: PANT20TA17 PO (14:01)
== END 2023-10-22 17:00 | disposition home or self-care (01) | DRG 663 ==
LOC: ER 18:33 → 5WST 23:01 → EDBEDREQ 23:09 → EDBEDREQTM 23:09 → 7EST 10-21 13:29
PROVIDERS: ADMIT Hospitalist; ATTEND Hospitalist
PROC: 30233N1 Transfusion of Nonautologous Red Blood Cells into Peripheral Vein, Percutaneous Approach (ICD-10-PCS; principal; 2023-10-20)
DX: D50.9 Iron deficiency anemia, unspecified (principal); Z86.74 Personal history of sudden cardiac arrest; D72.819 Decreased white blood cell count, unspecified; Z86.711 Personal history of pulmonary embolism; Z86.718 Personal history of other venous thrombosis and embolism; Z88.0 Allergy status to penicillin; Z79.899 Other long term (current) drug therapy; Z82.49 Family history of ischemic heart disease and other diseases of the circulatory system
CPT/HCPCS: 36415; 71045; 74178; 80048; 80076; 80305; 81003; 82607; 82728; 82746; 83540; 83550; 83615; 84439; 84443; 84484; 84703; 85014; 85018; 85025; 85379; 86850; 86900; 86920; 93005; 93970; 99285; J7030; P9016; Q9967